=== PATIENT | male | born 1995 | race American Indian/Alaskan Native ===

== ENCOUNTER 2021-12-14 09:21 | Emergency (ER) | payer SELFPAY ==
[2021-12-14 12:41] LABS: Hematocrit 50.1 % (35.5-45.6); Hemoglobin 16.5 gm/dl (11.8-15.2); Mean Corpuscular HGB Conc 33 % (32-34); Mean Corpuscular Volume 90 fl (84-94); Platelet Count 186 K/mm3 (140-440); Red Blood Count 5.59 M/mm3 (3.65-5.03)
[2021-12-14 12:56] LABS: Alanine Aminotransferase 21 units/L (7-56); Albumin 4.5 g/dL (3.9-5); BUN/Creatinine Ratio 11; Blood Urea Nitrogen 11 mg/dL (9-20); Calcium 9.1 mg/dL (8.4-10.2); Hemolysis Index 19
[2021-12-14 13:17] LABS: Band Neutrophils # (Manual) 0.1 K/mm3; Basophils % (Manual) 0 % (0.0-1.8); Eosinophils % (Manual) 0 % (0.0-4.3); Total Cells Counted 100
[2021-12-14 13:18] LABS: Large Platelets Few; Platelet Estimate Consistent w Auto; RBC Morphology Normal
--- NOTE | 2021-12-14 13:40 | Emergency Department Report ---
ED General Adult HPI - General Chief complaint: Upper Respiratory Infection Stated complaint: BODY ACHES/CHILLS Time Seen by Provider: 12/14/21 12:09 Source: patient Mode of arrival: Ambulatory Limitations: No Limitations - History of Present Illness Initial comments: This is a 26-year-old male nontoxic, well nourished in appearance, no acute signs of distress presents to the ED with c/o of body aches, sore eyes, loss of appetite times several days. Patient stated that symptoms started since last week after he received the COVID vaccine. Patient denies any URI symptoms. Patient stated that was his first dose. Otherwise patient denies any other symptoms or complaints. Patient denies any chest pain, shortness of breath, fever, chills, nausea, vomiting, headache, stiff neck, numbness or tingling. Patient denies any back pain or flank pain. Patient denies any allergies or significant past medical history. -: days(s) Radiation: non-radiation Severity scale (0 -10): 3 Quality: aching Consistency: constant Improves with: none Worsens with: none Associated Symptoms: denies other symptoms, loss of appetite. denies: confusion, chest pain, cough, diaphoresis, fever/chills, headaches, malaise, nausea/vomiting, rash, seizure, shortness of breath, syncope, weakness - Related Data Previous Rx's Medication Instructions Recorded Last Taken Type Naproxen 500 mg PO Q12H PRN #12 tab 12/14/21 Unknown Rx Allergies Allergy/AdvReac Type Severity Reaction Status Date / Time No Known Allergies Allergy Unverified 12/14/21 09:26 ED Review of Systems ROS: Stated complaint: BODY ACHES/CHILLS Other details as noted in HPI Comment: All other systems reviewed and negative Constitutional: denies: chills, fever Eyes: denies: eye pain, eye discharge, vision change ENT: denies: ear pain, throat pain Respiratory: denies: cough, shortness of breath, wheezing Cardiovascular: denies: chest pain, palpitations Endocrine: no symptoms reported Gastrointestinal: denies: abdominal pain, nausea, diarrhea Genitourinary: denies: urgency, dysuria Musculoskeletal: denies: back pain, joint swelling, arthralgia Skin: denies: rash, lesions Neurological: denies: headache, weakness, paresthesias Psychiatric: denies: anxiety, depression Hematological/Lymphatic: denies: easy bleeding, easy bruising ED Past Medical Hx - Medications Home Medications: Home Medications Medication Instructions Recorded Confirmed Last Taken Type Naproxen 500 mg PO Q12H PRN #12 tab 12/14/21 Unknown Rx ED Physical Exam - General Limitations: No Limitations General appearance: alert, in no apparent distress - Head Head exam: Present: atraumatic, normocephalic - Eye Eye exam: Present: normal appearance - Neck Neck exam: Present: normal inspection, full ROM. Absent: lymphadenopathy - Respiratory Respiratory exam: Present: normal lung sounds bilaterally. Absent: respiratory distress, wheezes, rales, rhonchi, stridor, chest wall tenderness, accessory muscle use, decreased breath sounds, prolonged expiratory - Cardiovascular Cardiovascular Exam: Present: regular rate, normal rhythm, normal heart sounds. Absent: bradycardia, tachycardia, irregular rhythm, systolic murmur, diastolic murmur, rubs, gallop - GI/Abdominal GI/Abdominal exam: Present: soft, normal bowel sounds. Absent: distended, tenderness, guarding, rebound, rigid, diminished bowel sounds - Extremities Exam Extremities exam: Present: normal inspection, full ROM, normal capillary refill. Absent: tenderness - Back Exam Back exam: Present: normal inspection, full ROM. Absent: tenderness, CVA tenderness (R), CVA tenderness (L), muscle spasm, paraspinal tenderness, vertebral tenderness, rash noted - Neurological Exam Neurological exam: Present: alert, oriented X3, normal gait - Psychiatric Psychiatric exam: Present: normal affect, normal mood - Skin Skin exam: Present: warm, dry, intact, normal color. Absent: rash ED Course Vital Signs 12/14/21 09:27 Temperature 99 F Pulse Rate 77 Respiratory 16 Rate Blood Pressure 120/89 [Right] O2 Sat by Pulse 100 Oximetry - Reevaluation(s) Reevaluation #1: 12/14/21 13:45 Patient is speaking in full sentences with no signs of distress noted. ED Medical Decision Making - Lab Data Result diagrams: 12/14/21 12:21 12/14/21 12:21 Lab Results 12/14/21 12/14/21 Range/Units 12:21 12:21 WBC 3.1 L (4.5-11.0) K/mm3 RBC 5.59 H (3.65-5.03) M/mm3 Hgb 16.5 H (11.8-15.2) gm/dl Hct 50.1 H (35.5-45.6) % MCV 90 (84-94) fl MCH 30 (28-32) pg MCHC 33 (32-34) % RDW 14.0 (13.2-15.2) % Plt Count 186 (140-440) K/mm3 [place] % (Auto) [employer]s Worker Add Manual Diff Complete Total Counted 100 Seg Neuts % (Manual) 55.0 (40.0-70.0) % Band Neutrophils % 2.0 % Lymphocytes % (Manual) 24.0 (13.4-35.0) % Reactive Lymphs % (Man) 0 % Monocytes % (Manual) 19.0 H (0.0-7.3) % Eosinophils % (Manual) 0 (0.0-4.3) % Basophils % (Manual) 0 (0.0-1.8) % Metamyelocytes % 0 % Myelocytes % 0 % Promyelocytes % 0 % Blast Cells % 0 % Nucleated RBC % Not Reportable Seg Neutrophils # Man 1.7 L (1.8-7.7) K/mm3 Band Neutrophils # 0.1 K/mm3 Lymphocytes # (Manual) 0.7 L (1.2-5.4) K/mm3 Abs React Lymphs (Man) 0.0 K/mm3 Monocytes # (Manual) 0.6 (0.0-0.8) K/mm3 Eosinophils # (Manual) 0.0 (0.0-0.4) K/mm3 Basophils # (Manual) 0.0 (0.0-0.1) K/mm3 Metamyelocytes # 0.0 K/mm3 Myelocytes # 0.0 K/mm3 Promyelocytes # 0.0 K/mm3 Blast Cells # 0.0 K/mm3 WBC Morphology Not Reportable Hypersegmented Neuts Not Reportable Hyposegmented Neuts Not Reportable Hypogranular Neuts Not Reportable Smudge Cells Not Reportable Toxic Granulation Not Reportable Toxic Vacuolation Not Reportable Dohle Bodies Not Reportable Pelger-Huet Anomaly Not Reportable Michael Rods Not Reportable Platelet Estimate Consistent w auto Clumped Platelets Not Reportable Plt Clumps, EDTA Not Reportable Large Platelets Few Giant Platelets Not Reportable Platelet Satelliting Not Reportable Plt Morphology Comment Not Reportable RBC Morphology Normal Dimorphic RBCs Not Reportable Polychromasia Not Reportable Hypochromasia Not Reportable Poikilocytosis Not Reportable Anisocytosis Not Reportable Microcytosis Not Reportable Macrocytosis Not Reportable Spherocytes Not Reportable Pappenheimer Bodies Not Reportable Sickle Cells Not Reportable Target Cells Not Reportable Tear Drop Cells Not Reportable Ovalocytes Not Reportable Helmet Cells Not Reportable [place] Bodies Not Reportable [place] Rings Not Reportable [place] Cells Not Reportable Bite Cells Not Reportable Crenated Cell Not Reportable Elliptocytes Not Reportable Acanthocytes (Spur) Not Reportable Rouleaux Not Reportable Hemoglobin C Crystals Not Reportable Schistocytes Not Reportable Malaria parasites Not Reportable [place] Bodies Not Reportable Hem Pathologist Commnt No Sodium 133 L (137-145) mmol/L Potassium 4.3 (3.6-5.0) mmol/L Chloride 97.5 L (98-107) mmol/L Carbon Dioxide 23 (22-30) mmol/L Anion Gap 17 mmol/L BUN 11 (9-20) mg/dL Creatinine 1.0 (0.8-1.3) mg/dL Estimated GFR > 60 ml/min BUN/Creatinine Ratio 11 % Glucose 92 (75-100) mg/dL Calcium 9.1 (8.4-10.2) mg/dL Total Bilirubin 0.20 (0.1-1.2) mg/dL AST 28 (5-40) units/L ALT 21 (7-56) units/L Alkaline Phosphatase 71 (35-129) units/L Total Protein 7.4 (6.3-8.2) g/dL Albumin 4.5 (3.9-5) g/dL Albumin/Globulin Ratio 1.6 % - Medical Decision Making 26-year-old male that presents with body aches. Patient is stable and was examined by me. Physical exam is unremarkable. Patient is notified of the lab results with no questions noted by the patient. Patient be discharged with naproxen for pain. Patient was instructed to follow-up with a primary care doctor in 3-5 days or if symptoms worsen and continue return to emergency room as soon as possible. At time of discharge, the patient does not seem toxic or ill in appearance. No acute signs of distress noted. Patient agrees to discharge treatment plan of care. No further questions noted by the patient. Critical care attestation.: If time is entered above; I have spent that time in minutes in the direct care of this critically ill patient, excluding procedure time. ED Disposition Clinical Impression: Body aches Disposition: 01 HOME / SELF CARE / HOMELESS Is pt being admited?: No Does the pt Need Aspirin: No Condition: Stable Additional Instructions: Follow-up with a primary care doctor in 3-5 days or if symptoms worsen and continue return to emergency room as soon as possible. Prescriptions: Naproxen 500 mg PO Q12H PRN #12 tab PRN Reason: Pain , Severe (7-10) Referrals: PRIMARY CARE, [Primary Care Provider] - 3-5 Days TRACY GILLILAND MD [Staff Physician] - 3-5 Days Forms: Work/School Release Form(ED) Time of Disposition: 13:47
[2021-12-14 14:28] VITALS: BP 150/100
== END 2021-12-14 14:30 | disposition home or self-care (01) ==
LOC: ED 09:21
DX: M79.18 Myalgia, other site (principal); R63.0 Anorexia
CPT/HCPCS: 36415; 80053; 85007; 85025; 99283

== ENCOUNTER 2022-02-21 08:00 | Emergency (ER) | payer SELFPAY ==
[2022-02-21 09:20] VITALS: BP 177/111
[2022-02-21] MEDS ORDERED: SODIUM CHLORIDE 0.9% 1000 ML 1,000 ML IV ONE (10:36)
[2022-02-21 11:17] LABS: Bilirubin,Urine NEG (Negative); Blood,Urine NEG (Negative); Color,Urine Yellow (Yellow); Mucus,Urine 1+ /HPF; Protein,Urine <15 mg/dL mg/dL (Negative)
--- NOTE | 2022-02-21 11:47 | Ultrasound Report ---
ULTRASOUND SCROTUM INDICATION / CLINICAL INFORMATION: testicular swelling. Palpable nodule in the posterior scrotum COMPARISON: None available. FINDINGS -- RIGHT: TESTIS: Size = 5.0 x 2.3 x 3.2 cm. - Appearance: Microlithiasis - Cyst / Mass: None. - Color Doppler Flow: No significant abnormality. EPIDIDYMIS: Tiny 4 mm cyst in the head of the epididymis. HYDROCELE: None. VARICOCELE: None demonstrated. FINDINGS -- LEFT: TESTIS: Size = 5.0 x 2.3 x 2.9 cm. - Appearance: Microlithiasis - Cyst / Mass: None. - Color Doppler Flow: No significant abnormality. EPIDIDYMIS: No significant abnormality. HYDROCELE: None. VARICOCELE: None demonstrated. ADDITIONAL FINDINGS: Within the posterior scrotal soft tissues, there is a complex fluid collection m easuring 2.2 x 3.3 x 1.8 cm with moderate surrounding vascularity on color Doppler imaging. This hedy ection corresponds to the palpable abnormality. IMPRESSION: 1. 3.3 cm complex fluid collection in the posterior scrotal soft tissues which could represent develo ping abscess or infected cyst. 2. Testicular microlithiasis is present without intratesticular mass or other worrisome findings. In the absence of any other risk factors for testicular cancer (e.g., personal history of testicular cancer, a father or brother with testicular cancer, history of cryptorchidism or maldescent, testicul ar atrophy, or other risk factors), no further imaging or biochemical follow-up is necessary; all kelly t is recommended is routine monthly testicular self-examination. However, if the patient has risk factors for testicular cancer, referral to a urologist for evaluatio n and determination of an optimal follow-up strategy is recommended. REFERENCE: Testicular Microlithiasis: What Should You Recommend Michael Guerrero, Giovani tello, and Giovani Shelby. [place] Journal of Roentgenology 2016 206:6, [id number] Signer Name: Honorio Bradley MD Signed: 02/21/2022 11:43 AM Workstation Name: [id number]
[2022-02-21 12:20] LABS: Basophils # (Auto) 0.1 K/mm3 (0.0-0.1); Basophils % (Auto) 0.8 % (0.0-1.8); Eosinophils # (Auto) 0.2 K/mm3 (0.0-0.4); Eosinophils % (Auto) 3.7 % (0.0-4.3); Hematocrit 44.3 % (35.5-45.6); Hemoglobin 14.7 gm/dl (11.8-15.2); Lymphocytes # (Auto) 1.7 K/mm3 (1.2-5.4); Lymphocytes % (Auto) 26.1 % (13.4-35.0); Mean Corpuscular HGB Conc 33 % (32-34); Mean Corpuscular Volume 90 fl (84-94); Monocytes # (Auto) 0.7 K/mm3 (0.0-0.8); Monocytes % (Auto) 10.8 % (0.0-7.3); Platelet Count 256 K/mm3 (140-440); Red Blood Count 4.91 M/mm3 (3.65-5.03); Red Cell Distribution Width 14.1 % (13.2-15.2)
[2022-02-21 12:28] LABS: BUN/Creatinine Ratio 14; Blood Urea Nitrogen 11 mg/dL (9-20); Calcium 9.4 mg/dL (8.4-10.2); Hemolysis Index 0
--- NOTE | 2022-02-21 13:10 | Emergency Department Report ---
ED Male HPI - General Chief complaint: Urogenital-Male Stated complaint: CYST LUMP ON GROIN AREA Time Seen by Provider: 02/21/22 10:19 Source: patient Mode of arrival: Ambulatory Limitations: No Limitations - History of Present Illness Initial comments: This is a 26-year-old male nontoxic, well nourished in appearance, no acute signs of distress presents to the ED with c/o of redness and pain with some swelling between the testicular and anus x several days. Patient denies any pus or drainage. Patient denies any fever, chills, nausea, vomiting, chest pain, shortness of breath, headache or stiff neck. Denies any trauma. Denies any urinary symptoms. Patient denies any allergies or significant past medical history. MD Complaint: groin pain -: days(s) Radiation: none Severity: mild Severity scale (0 -10): 3 Quality: aching Consistency: constant Improves with: none Worsens with: none denies other symptoms. denies: discharge, swelling, mass, rash, urinary retention, blood in urine, dysuria, fever, nausea/vomiting, incontinence - Related Data Previous Rx's Medication Instructions Recorded Last Taken Type Naproxen 500 mg PO Q12H PRN #12 tab 12/14/21 Unknown Rx Acetaminophen/Codeine [Tylenol 1 tab PO Q6H PRN #12 tab 02/21/22 Unknown Rx /Codeine # 3 tab] Clindamycin [Clindamycin CAP] 300 mg PO Q6H #28 cap 02/21/22 Unknown Rx Allergies Allergy/AdvReac Type Severity Reaction Status Date / Time No Known Allergies Allergy Unverified 12/14/21 09:26 ED Review of Systems ROS: Stated complaint: CYST LUMP ON GROIN AREA Other details as noted in HPI Comment: All other systems reviewed and negative Constitutional: denies: chills, fever Eyes: denies: eye pain, eye discharge, vision change ENT: denies: ear pain, throat pain Respiratory: denies: cough, shortness of breath, wheezing Cardiovascular: denies: chest pain, palpitations Endocrine: no symptoms reported Gastrointestinal: denies: abdominal pain, nausea, diarrhea Genitourinary: denies: urgency, dysuria Musculoskeletal: denies: back pain, joint swelling, arthralgia Skin: denies: rash, lesions Neurological: denies: headache, weakness, paresthesias Psychiatric: denies: anxiety, depression Hematological/Lymphatic: denies: easy bleeding, easy bruising ED Past Medical Hx - Medications Home Medications: Home Medications Medication Instructions Recorded Confirmed Last Taken Type Naproxen 500 mg PO Q12H PRN #12 tab 12/14/21 Unknown Rx Acetaminophen/Codeine [Tylenol 1 tab PO Q6H PRN #12 tab 02/21/22 Unknown Rx /Codeine # 3 tab] Clindamycin [Clindamycin CAP] 300 mg PO Q6H #28 cap 02/21/22 Unknown Rx ED Physical Exam - General Limitations: No Limitations General appearance: alert, in no apparent distress - Head Head exam: Present: atraumatic, normocephalic - Eye Eye exam: Present: normal appearance - Neck Neck exam: Present: normal inspection, full ROM. Absent: lymphadenopathy - Respiratory Respiratory exam: Absent: respiratory distress - Cardiovascular Cardiovascular Exam: Present: regular rate - GI/Abdominal GI/Abdominal exam: Present: soft, normal bowel sounds. Absent: distended, tenderness, guarding, rebound, rigid - exam: Present: other (Slight induration with some swelling between bulb ourethral gland). Absent: testicular tenderness, urethral discharge, scrotal swelling, vertical testicular lie External exam: Present: normal external exam. Absent: erythema, swelling, lesions, lacerations, ecchymosis, bleeding - Extremities Exam Extremities exam: Present: full ROM - Back Exam Back exam: Present: normal inspection, full ROM. Absent: tenderness, CVA tenderness (R), CVA tenderness (L), muscle spasm, paraspinal tenderness, vertebral tenderness, rash noted - Neurological Exam Neurological exam: Present: alert, oriented X3, normal gait - Psychiatric Psychiatric exam: Present: normal affect, normal mood - Skin Skin exam: Present: warm, dry, intact, normal color. Absent: rash ED Course Vital Signs 02/21/22 02/21/22 09:19 13:39 Temperature 97.9 F Pulse Rate 73 Respiratory 18 16 Rate Blood Pressure 177/111 [Right] O2 Sat by Pulse 100 Oximetry - Reevaluation(s) Reevaluation #1: 02/21/22 13:15 Patient is speaking in full sentences with no signs of distress noted. - Consultations Consultation #1: 02/21/22 13:52 Patient has been consulted with Dr. Anderson about patient history, physical exam, and labs/imaging results and examined and patient and will consult urologist for appropriate treatment. 02/21/22 13:54 Attempted to call [facility] urologist and not excepting transfer. [facility] urologist paged and waiting for callback. ED Medical Decision Making - Lab Data Result diagrams: 02/21/22 11:45 02/21/22 11:45 Lab Results 02/21/22 02/21/22 02/21/22 Range/Units 10:36 11:45 11:45 WBC 6.5 (4.5-11.0) K/mm3 RBC 4.91 (3.65-5.03) M/mm3 Hgb 14.7 (11.8-15.2) gm/dl Hct 44.3 (35.5-45.6) % MCV 90 (84-94) fl MCH 30 (28-32) pg MCHC 33 (32-34) % RDW 14.1 (13.2-15.2) % Plt Count 256 (140-440) K/mm3 Lymph % (Auto) 26.1 (13.4-35.0) % [place] % (Auto) 10.8 H (0.0-7.3) % Eos % (Auto) 3.7 (0.0-4.3) % Baso % (Auto) 0.8 (0.0-1.8) % Lymph # (Auto) 1.7 (1.2-5.4) K/mm3 [place] # (Auto) 0.7 (0.0-0.8) K/mm3 Eos # (Auto) 0.2 (0.0-0.4) K/mm3 Baso # (Auto) 0.1 (0.0-0.1) K/mm3 Seg Neutrophils % 58.6 (40.0-70.0) % Seg Neutrophils # 3.8 (1.8-7.7) K/mm3 Sodium 137 (137-145) mmol/L Potassium 4.3 (3.6-5.0) mmol/L Chloride 101.9 (98-107) mmol/L Carbon Dioxide 25 (22-30) mmol/L Anion Gap 14 mmol/L BUN 11 (9-20) mg/dL Creatinine 0.8 (0.8-1.3) mg/dL Estimated GFR > 60 ml/min BUN/Creatinine Ratio 14 % Glucose 93 (75-100) mg/dL Calcium 9.4 (8.4-10.2) mg/dL Urine Color Yellow (Yellow) Urine Turbidity Clear (Clear) Urine pH 6.0 (5.0-7.0) Ur Specific [place] 1.026 (1.003-1.030) Urine Protein <15 mg/dl (Negative) mg/dL Urine Glucose (UA) Neg (Negative) mg/dL Urine Ketones Neg (Negative) mg/dL Urine Blood Neg (Negative) Urine Nitrite Neg (Negative) Urine Bilirubin Neg (Negative) Urine Urobilinogen 2.0 (<2.0) mg/dL Ur Leukocyte Esterase Neg (Negative) Urine WBC (Auto) 3.0 (0.0-6.0) /HPF Urine RBC (Auto) 2.0 (0.0-6.0) /HPF U Epithel Cells (Auto) < 1.0 (0-13.0) /HPF Urine Mucus 1+ /HPF - Radiology Data [facility] [address] [place] [address] Ultrasound Report Signed Patient: PARVEEN BACON MR#: [id number] : 1995 Acct:[id number] Age/Sex: 26 / M ADM Date: 02/21/22 Loc: ED Attending Dr: Ordering Physician: JV MALDONADO NP Date of Service: 02/21/22 Procedure(s): US testicular doppler comp Accession Number(s): [id number] cc: JV MALDONADO NP ULTRASOUND SCROTUM INDICATION / CLINICAL INFORMATION: testicular swelling. Palpable nodule in the posterior scrotum COMPARISON: None available. FINDINGS -- RIGHT: TESTIS: Size = 5.0 x 2.3 x 3.2 cm. - Appearance: Microlithiasis - Cyst / Mass: None. - Color Doppler Flow: No significant abnormality. EPIDIDYMIS: Tiny 4 mm cyst in the head of the epididymis. HYDROCELE: None. VARICOCELE: None demonstrated. FINDINGS -- LEFT: TESTIS: Size = 5.0 x 2.3 x 2.9 cm. - Appearance: Microlithiasis - Cyst / Mass: None. - Color Doppler Flow: No significant abnormality. EPIDIDYMIS: No significant abnormality. HYDROCELE: None. VARICOCELE: None demonstrated. ADDITIONAL FINDINGS: Within the posterior scrotal soft tissues, there is a complex fluid collection measuring 2.2 x 3.3 x 1.8 cm with moderate surrounding vascularity on color Doppler imaging. This collection corresponds to the palpable abnormality. IMPRESSION: 1. 3.3 cm complex fluid collection in the posterior scrotal soft tissues which could represent developing abscess or infected cyst. 2. Testicular microlithiasis is present without intratesticular mass or other worrisome findings. In the absence of any other risk factors for testicular cancer (e.g., personal history of testicular cancer, a father or brother with testicular cancer, history of cryptorchidism or maldescent, testicular atrophy, or other risk factors), no further imaging or biochemical follow-up is necessary; all that is recommended is routine monthly testicular self- examination. However, if the patient has risk factors for testicular cancer, referral to a urologist for evaluation and determination of an optimal follow-up strategy is recommended. REFERENCE: Testicular Microlithiasis: What Should You Recommend Davin Mueller, Michael Lala, Giovani Camacho, and Giovani Shelby. [place] Journal of Roentgenology 2016 206:6, [phone] Signer Name: Honorio Bradley MD Signed: 02/21/2022 11:43 AM Workstation Name: [id number] Transcribed By: DT Dictated By: Erwin Bradley MD Electronically Authenticated By: Erwin Bradley MD Signed Date/Time: 02/21/22 1143 DD/ 1139 TD/TT: [facility] [address] [place] [address] Cat Scan Report Signed Patient: PARVEEN BACON MR#: [id number] : 1995 Acct:[id number] Age/Sex: 26 / M ADM Date: 02/21/22 Loc: ED Attending Dr: Ordering Physician: JV MALDONADO NP Date of Service: 02/21/22 Procedure(s): CT pelvis w con Accession Number(s): [id number] cc: JV MALDONADO NP CT PELVIS WITH IV CONTRAST INDICATION: testicular swelling r/o abscess. COMPARISON: Scrotal ultrasound earlier today. TECHNIQUE: Axial CT images were obtained through the pelvis after IV contrast. All CT scans at this location are performed using CT dose reduction for ALARA by means of automated exposure control. FINDINGS: BOWEL: Normal. APPENDIX: Normal. PERITONEUM: No free fluid. No free air. No fluid collection. LYMPH NODES: There is mild right external iliac and right groin adenopathy. ARTERIES: No significant abnormality. VEINS: No significant abnormality. URINARY BLADDER: Normal. ADDITIONAL FINDINGS: At the base of the scrotum posteriorly there is a circumscribed peripherally enhancing fluid collection which measures 3.1 cm on axial image 116. There is surrounding subcutaneous edema/stranding. SKELETAL SYSTEM: No acute abnormality. IMPRESSION: 1. 3.1 cm abscess along the posterior scrotum near the base of the scrotum with surrounding scrotal cellulitis. Signer Name: Ministerio Galvez MD Signed: 02/21/2022 1:19 PM Workstation Name: [id number] Transcribed By: Dictated By: Ministerio Galvez MD Electronically Authenticated By: Ministerio Galvez MD Signed Date/Time: 02/21/221318 DD/ 15 TD/TT: - Medical Decision Making This is a 26-year-old male scrotal abscess. Patient stable and was examined by me and Dr. Anderson. Patient is notified of the imaging results with no questions noted by the patient. A urologist has been paged and was waiting for callback. At this time patient stated he has to leave. I instructed patient of my concerns for further evaluation, treatment and appropriate disposition but patient still refused and signed AGAINST MEDICAL ADVICE. Patient educated on risk factors if not properly treated such as severe disability and/or but patient still refused. Patient did receive clindamycin IV and I will discharge patient does well in clindamycin and pain medication. Patient was instructed to follow-up with a primary care doctor as soon as possible or if symptoms worsen and continue return to emergency room as soon as possible. At time of signing AMA, the patient does not seem toxic or ill in appearance. No acute signs of distress noted. No further questions noted by the patient. Critical care attestation.: If time is entered above; I have spent that time in minutes in the direct care of this critically ill patient, excluding procedure time. ED Disposition Clinical Impression: Scrotal abscess Disposition: LEFT AGAINST MEDICAL ADVICE Is pt being admited?: No Does the pt Need Aspirin: No Condition: Undetermined Instructions: Skin Abscess Additional Instructions: Follow-up with a primary care doctor as soon as possible or if symptoms worsen and continue return to emergency room as soon as possible. Your condition may be serious as instructed and educated today in the ER but you decided to leave AGAINST MEDICAL ADVICE. It is highly recommended to see a provider as soon as possible to rule out serious complications that was described to you during your ED stay. Prescriptions: Clindamycin [Clindamycin CAP] 300 mg PO Q6H #28 cap Acetaminophen/Codeine [Tylenol /Codeine # 3 tab] 1 tab PO Q6H PRN #12 tab PRN Reason: Pain , Severe (7-10) Referrals: PRIMARY CAREMD [Primary Care Provider] - 3-5 Days TRACY GILLILAND MD [Staff Physician] - 3-5 Days Forms: Work/School Release Form(ED), AMA Form Time of Disposition: 14:45
[2022-02-21] MEDS ORDERED: MORPHINE 4 MG/1 ML INJ IV ONE (13:23)
--- NOTE | 2022-02-21 13:24 | Cat Scan Report ---
CT PELVIS WITH IV CONTRAST INDICATION: testicular swelling r/o abscess. COMPARISON: Scrotal ultrasound earlier today. TECHNIQUE: Axial CT images were obtained through the pelvis after IV contrast. All CT scans at this location are performed using CT dose reduction for ALARA by means of automated exposure control. FINDINGS: BOWEL: Normal. APPENDIX: Normal. PERITONEUM: No free fluid. No free air. No fluid collection. LYMPH NODES: There is mild right external iliac and right groin adenopathy. ARTERIES: No significant abnormality. VEINS: No significant abnormality. URINARY BLADDER: Normal. ADDITIONAL FINDINGS: At the base of the scrotum posteriorly there is a circumscribed peripherally enh ancing fluid collection which measures 3.1 cm on axial image 116. There is surrounding subcutaneous e keenan/stranding. SKELETAL SYSTEM: No acute abnormality. IMPRESSION: 1. 3.1 cm abscess along the posterior scrotum near the base of the scrotum with surrounding scrotal c ellulitis. Signer Name: Ministerio Galvez MD Signed: 02/21/2022 1:19 PM Workstation Name: [id number]
[2022-02-21] MEDS ORDERED: CLINDAMYCIN 600 MG/50 mL 600 MG/50 ML BAG IV ONE (13:26)
== END 2022-02-21 15:00 | disposition left against medical advice (07) ==
LOC: ED 08:00
DX: N49.2 Inflammatory disorders of scrotum (principal)
CPT/HCPCS: 36415; 72193; 80048; 81001; 85025; 93975; 96361; 96365; 96375; 99284; J2270; J7030; J7502; Q9967; Q0162